=== PATIENT | female | born 1960 | race Caucasian/White ===

== ENCOUNTER 2021-04-15 08:26 | Emergency (ER) | payer OTHER ==
[2021-04-15] MEDS ORDERED: SODIUM CHLORIDE 0.9% 500 ML 500 ML IV STA (08:53)
[2021-04-15] MEDS ORDERED: SODIUM CHLORIDE 0.9% 50 ML IVPB ONE (09:30)
--- NOTE | 2021-04-15 09:41 | ED ---
URI HPI - General Chief Complaint: Upper Respiratory Infection Stated Complaint: Cough, fever Time Seen by Provider: 04/15/21 08:42 Source: patient, RN notes reviewed Mode of arrival: ambulatory Limitations: no limitations - History of Present Illness Initial Comments: Patient is a 61-year-old female with history of thyroid disease, presenting to emergency Department with complaints of viral type symptoms that started yesterday. She states her mother and father both recently diagnosed with Covid. She's been having a cough, headache, body aches and chills since yesterday. She denies any chest pain or short of breath, no abdominal pain. Her appetite has been a little bit lower today but otherwise the same as normal, she's tolerating water. Patient was interested monoclonal antibodies. She has no further complaints. Her vital signs are normal upon arrival. - Related Data Allergies Allergy/AdvReac Type Severity Reaction Status Date / Time codeine Allergy Itching Verified 04/15/21 08:41 Review of Systems ROS Statement: Those systems with pertinent positive or pertinent negative responses have been documented in the HPI. ROS Other: All systems not noted in ROS Statement are negative. Past Medical History Past Medical History: Thyroid Disorder History of Any Multi-Drug Resistant Organisms: None Reported Past Surgical History: Joint Replacement, Orthopedic Surgery Past Psychological History: No Psychological Hx Reported Smoking Status: Never smoker Past Alcohol Use History: None Reported Past Drug Use History: None Reported General Exam - General Exam Comments Initial Comments: GENERAL: Patient is well-developed and well-nourished. Patient is nontoxic and in no acute distress. HEAD: Atraumatic, normocephalic. EYES: Pupils equal round and reactive to light, extraocular movements intact, sclera anicteric, conjunctiva are normal. Eyelids were unremarkable. ENT: Oropharynx clear without exudates. Moist mucous membranes. NECK: Normal range of motion, supple without lymphadenopathy or JVD. LUNGS: Unlabored respirations. Breath sounds clear to auscultation bilaterally and equal. No wheezes rales or rhonchi. HEART: Regular rate and rhythm without murmurs, rubs or gallops. ABDOMEN: Soft, nontender, normoactive bowel sounds. No guarding, no rebound. No masses appreciated. MUSCULOSKELETAL: Normal extremities with adequate strength and normal range of motion, no pitting or edema. No clubbing or cyanosis. NEUROLOGICAL: Patient is alert and oriented x 3. SKIN: Warm, Dry, normal turgor, no rashes or lesions noted. Limitations: no limitations Course Vital Signs 04/15/21 04/15/21 04/15/21 08:38 09:39 12:27 Temperature 98.8 F 98.2 F Pulse Rate 78 74 Respiratory 18 17 17 Rate Blood Pressure 120/63 127/79 O2 Sat by Pulse 96 98 Oximetry Medical Decision Making - Medical Decision Making Patient is a 61-year-old female here with viral type symptoms since yesterday. Her mother and father recently tested positive for Covid. She is unvaccinated. Her vitals are stable, exam is unremarkable. Patient's Covid test is positive. She qualified for monoclonal antibodies, she received these without adverse side effects. Her vitals remained stable. She is stable for discharge. Recommending continuing without [id number] medications for her symptoms. She can follow-up with her primary care. Patient is agreeable to this plan of care. Return parameters were discussed with her and she verbalized understanding. Case discussed with Dr. Mir. - Lab Data Lab Results 04/15/21 Range/Units 09:01 Coronavirus (PCR) Detected A (Not Detectd) Disposition Clinical Impression: COVID-19 Disposition: HOME SELF-CARE Condition: Stable Instructions (If sedation given, give patient instructions): Coronavirus Disease 2019 (COVID-19) Additional Instructions: Please return to the Emergency Department if symptoms worsen or any other concerns. May take Tylenol or Motrin for any fevers or body aches. Follow-up with your primary care as needed. Is patient prescribed a controlled substance at d/c from ED?: No Referrals: Mehul Childs MD [Primary Care Provider] - 1-2 days Time of Disposition: 12:26
[2021-04-15] MEDS ORDERED: BAMLANIVIMAB (EUA) 700 MG, ETESEVIMAB (EUA) 1,400 MG in SODIUM CHLORIDE 0.9% 50 ML IVPB ONE (10:00)
[2021-04-15 12:27] VITALS: RESP 17
[2021-04-15 12:28] VITALS: BP 127/79; PULSE 74; TEMP 98.2
== END 2021-04-15 12:28 | disposition home or self-care (01) ==
LOC: EC 08:26
DX: U07.1 COVID-19 (principal); Z88.5 Allergy status to narcotic agent
CPT/HCPCS: 87635; 99284; 96365; 96361; J3490

== ENCOUNTER → 2022-04-20 | Outpatient (CLI) | payer SELFPAY ==
[2022-04-20 10:27] LABS: African American GFR (CKD) 92.9 (60.0-200.0); Anion Gap 9.3 mmol/L (10.00-18.00); BUN/Creat Ratio 23.5 Ratio (12.00-20.00); Blood Urea Nitrogen 18.8 mg/dL (9.0-27.0); Calcium 9.2 mg/dL (8.7-10.3); Carbon Dioxide 24.7 mmol/L (20.0-27.5); Non-African American GFR(CKD) 80.1 (60.0-200.0); Potassium 4.4 mmol/L (3.5-5.5)
== END | disposition home or self-care (01) ==
LOC: LABWHC1 07:11
PROVIDERS: ATTEND Family Medicine
DX: Z00.00 Encounter for general adult medical examination without abnormal findings (principal)
CPT/HCPCS: 36415; 80048; 84443

== ENCOUNTER → 2022-05-10 | Outpatient (CLI) | payer SELFPAY ==
--- NOTE | 2022-05-11 09:28 | MM ---
Reason for Exam: Screening (asymptomatic). Last mammogram was performed 1 year(s) and 2 month(s) ago. Patient History: Menarche at age 14. Patient has no children. Postmenopausal. Mother had breast cancer, age 77. Risk Values: Precious 5 year model risk: 2.8%. NCI Lifetime model risk: 13.9%. Prior Study Comparison: 12/01/1999 Bilateral Screening Mammogram, [facility]. 03/08/2010 Bilateral Screening Mammogram, [facility]. 03/17/2021 Bilateral Screening Mammogram, [facility]. Tissue Density: There are scattered fibroglandular densities. Findings: Analyzed By CAD. Pattern appears symmetrical and stable. No significant interval change. No suspicious groups of microcalcifications, spiculated or lobular masses, architectural distortion or other secondary signs of malignancy are mammographically apparent. Overall Assessment: Benign, BI-RAD 2 Management: Screening Mammogram of both breasts in 1 year. A negative mammogram report should not preclude additional follow up of suspicious palpable abnormalities. Patient should continue monthly self breast exam. A clinical breast exam by your physician is recommended on an annual basis and results should be correlated with mammographic findings. Electronically signed and approved by: Jaylon Davies D.O. Radiologis
== END | disposition home or self-care (01) ==
LOC: RADMAMWWP 16:40
PROVIDERS: ATTEND Family Medicine
DX: Z12.31 Encounter for screening mammogram for malignant neoplasm of breast (principal); Z78.0 Asymptomatic menopausal state; Z80.3 Family history of malignant neoplasm of breast
CPT/HCPCS: 77063; 77067